=== PATIENT | female | born 1970 | race Caucasian/White ===

== ENCOUNTER 2020-03-27 08:35 | Outpatient (CLI) | payer OTHER, SELFPAY ==
--- NOTE | 2020-03-27 08:44 | MM_ITS ---
WS: [id number] BILATERAL DIGITAL SCREENING MAMMOGRAM WITH CAD CLINICAL INFORMATION: SCREENING HISTORY: Screening mammogram. No current complaints. COMPARISON: TECHNIQUE: Bilateral CC and MLO views. FINDINGS: Fatty-replaced breasts bilaterally. No suspicious focal mass, asymmetry, calcifications, or it security architect ural distortion. No evidence of malignancy. MM/[place] [id number] IMPRESSION: BI-RADS: 1-Negative FOLLOW UP: 1 Year Follow-up Recommend return to annual screening mammography.
== END 2020-03-27 08:36 | disposition home or self-care (01) ==
LOC: RADSHAW 08:38
PROVIDERS: PCP Family Medicine; Visit Provider Family Medicine
DX: Z12.31 Encounter for screening mammogram for malignant neoplasm of breast (principal)
CPT/HCPCS: 77067

== ENCOUNTER → 2021-02-04 09:18 | Outpatient (BNVA) | payer OTHER, SELFPAY | PROVIDERS: PCP Family Medicine; Visit Provider Internal Medicine Rheumatology | DX: M17.11 Unilateral primary osteoarthritis, right knee (principal); R76.8 Other specified abnormal immunological findings in serum; M65.4 Radial styloid tenosynovitis [de Quervain] | CPT/HCPCS: 99203 ==

== ENCOUNTER 2021-07-12 12:30 | Outpatient (RCR) | payer OTHER, SELFPAY | END 2021-08-04 23:59 | disposition home or self-care (01) | LOC: SPT 12:30 | PROVIDERS: PCP Family Medicine; Visit Provider Physician Assistant Surgical | DX: Z47.1 Aftercare following joint replacement surgery (principal); Z96.651 Presence of right artificial knee joint | CPT/HCPCS: 97110; 97162 ==

== ENCOUNTER 2021-08-05 06:00 | Outpatient (RCR) | payer OTHER, SELFPAY | END 2021-08-26 23:59 | disposition home or self-care (01) | LOC: SPT 06:00 | PROVIDERS: PCP Family Medicine; Visit Provider Physician Assistant Surgical | DX: Z47.1 Aftercare following joint replacement surgery (principal); Z96.651 Presence of right artificial knee joint | CPT/HCPCS: 97110 ==

== ENCOUNTER 2021-09-24 09:06 | Outpatient (CLI) | payer OTHER, SELFPAY ==
--- NOTE | 2021-09-24 09:15 | MM_ITS ---
WS: [id number] Exam: [place] [id number] Date/Time of Exam: 09/24/2021 9:27 AM Reason For Exam: SCREENING VIEWS: MLO and CC views both breasts. Comparison made with prior exam of 03/30/2017, 03/27/2020. Findings: There was no sign of mass, architectural distortion or suspicious calcification in either breast. Fa tty MM/[place] [id number] Impression: BI-RADS: 2-Benign FOLLOW-UP: 1 Year Follow-up This mammogram was also analyzed by the Computer Aided Detection System R2 Imag e Dismantler.
== END 2021-09-24 09:07 | disposition home or self-care (01) ==
LOC: RADSHAW 09:14
PROVIDERS: PCP Family Medicine; Visit Provider Nurse Practitioner Family
DX: Z12.31 Encounter for screening mammogram for malignant neoplasm of breast (principal)
CPT/HCPCS: 77067

== ENCOUNTER 2023-01-02 11:10 | Outpatient (CLI) | payer OTHER, SELFPAY ==
--- NOTE | 2023-01-02 11:27 | MM_ITS ---
WS: [id number] BILATERAL SCREENING DIGITAL TOMOSYNTHESIS MAMMOGRAM WITH CAD HISTORY: SCREENING COMPARISON: 09/24/2021 and 03/27/2020 Bilateral CC and MLO views with tomosynthesis and synthetic mammography submitted. Computer aided det ection analyzed. Breast composition: There are scattered areas of fibroglandular density. No suspicious masses, microc alcifications or architectural distortion. MM/[place] [id number] IMPRESSION: BI-RADS: 1-Negative FOLLOW UP: 1 Year Follow-up
== END 2023-01-02 11:11 | disposition home or self-care (01) ==
LOC: RAD 11:15
PROVIDERS: PCP Family Medicine; Visit Provider Nurse Practitioner Family
DX: Z12.31 Encounter for screening mammogram for malignant neoplasm of breast (principal)
CPT/HCPCS: 77063; 77067

== ENCOUNTER 2024-11-02 14:29 | Outpatient (CLI) | payer OTHER, SELFPAY ==
--- NOTE | 2024-11-02 14:36 | XR_ITS ---
WS: [id number] Exam: XR shoulder RT min 2V* [id number] Date/Time of Exam: 11/02/2024 2:51 PM Reason For Exam: RIGHT SHOULDER PAIN No fracture. Mild arthrosis at the AC joint. The glenohumeral joint is preserved. Normal soft tissues . XR/XR shoulder RT min 2V* [id number] IMPRESSION: 1. 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
== END 2024-11-02 14:30 | disposition home or self-care (01) ==
LOC: RAD 14:34
PROVIDERS: PCP Nurse Practitioner Family; Visit Provider Nurse Practitioner Family
DX: M19.011 Primary osteoarthritis, right shoulder (principal)
CPT/HCPCS: 73030

== ENCOUNTER 2025-08-24 10:28 | Outpatient (CLI) | payer OTHER, SELFPAY ==
--- NOTE | 2025-08-24 10:00 | MM_ITS ---
WS: [id number] SCREENING DIGITAL TOMOSYNTHESIS MAMMOGRAM WITH CAD HISTORY: SCREENING COMPARISON: 01/02/2023, 09/24/2021 Bilateral CC and MLO with tomosynthesis views submitted. Synthetic mammography reviewed. Computer aided detection analyzed. Breast composition: The breasts are almost entirely fatty. No suspicious masses, microcalcifications or architectural distortion. MM/MM scr BI tomosynthesis [id number] IMPRESSION: BI-RADS: 1 - Negative. FOLLOW UP: 1 Year Follow-up
== END 2025-08-24 10:29 | disposition home or self-care (01) ==
LOC: MOBLMAM 10:30
PROVIDERS: PCP Nurse Practitioner Family; Visit Provider Nurse Practitioner Family
DX: Z12.31 Encounter for screening mammogram for malignant neoplasm of breast (principal); R92.313 Mammographic fatty tissue density, bilateral breasts
CPT/HCPCS: 77063; 77067